=== PATIENT | female | born 1980 ===

== ENCOUNTER 2024-04-01 07:57 | Emergency (ER) | payer OTHER, MEDICAID ==
[~2024-04-01] VITALS: Ht 165.1 cm; Wt 84.1 kg
[2024-04-01 08:02] VITALS: TEMP 98.9
[2024-04-01] MEDS ORDERED: FERR325T27 PO (08:04)
[2024-04-01 10:05] LABS: COVID AG,FIA SOURCE NASAL SWAB
[2024-04-01 10:31] LABS: RAPID GROUP A STREP NEGATIVE (NEGATIVE)
[2024-04-01 10:36] LABS: INFLUENZA TYPE A NEGATIVE FOR TYPE A (NEGATIVE); INFLUENZA TYPE B NEGATIVE FOR TYPE B (NEGATIVE)
[2024-04-01 10:49] LABS: SARS-COV2 (COVID) ANTIGEN,FIA Negative (Negative)
[2024-04-01] MEDS: OXYMETAZOLINE HCL 0.05% 15 ML NASAL SPRAY NASAL ONE (11:42)
[2024-04-01 12:25] VITALS: BP 138/79; PULSE 88; RESP 18
== END 2024-04-01 12:33 | disposition home or self-care (01) ==
LOC: EMS 08:00
DX: J06.9 Acute upper respiratory infection, unspecified (principal); Z98.890 Other specified postprocedural states; Z20.822 Contact with and (suspected) exposure to COVID-19
CPT/HCPCS: 87430; 87804; 99283